=== PATIENT | female | born 1935 | race Hispanic/Latino ===

== ENCOUNTER 2017-12-29 10:52 | Inpatient (IN) | payer MEDICARE ==
[~2017-12-29] VITALS: Ht 152.4 cm; Wt 46.9 kg
[~2017-12-29 10:52] MED LIST: ACET-2247 PO; ACET325T51 PO; ASCO500T9 PO; BALS60OI TP; CINA30 PO; CLOP75TA14 PO; CYCL30DR OU; DOCU-116 PO; FOLI0.8T2 PO; FOLI1TAB15 PO; HONE15GE TP; INSU500V SQ; IPRA3AMP24 IH; LATA2.5D2 OU; METO50TA9 PO; NITR0.4T SL; ONDA4TAB4 PO; PANT40TA25 PO; SEVE800T7 PO
[2017-12-29 12:03] LABS: BASOPHILS % (AUTO) 0.3 % (0.0-5.0); EOSINOPHILS % (AUTO) 0.3 % (0.0-8.0); HEMATOCRIT 33.6 % (36-48); LYMPHOCYTES % (AUTO) 13.3 % (21.0-51.0); MEAN CORPUSCULAR HEMOGLOBIN 32.2 pg (27.0-33.0); MEAN CORPUSCULAR HGB CONC 32.5 g/dL (32.0-36.0); MEAN CORPUSCULAR VOLUME 99.1 fL (79-99); NEUTROPHILS % (AUTO) 73.1 % (40.0-77.0); PLATELET COUNT (AUTO) 373 K/uL (130-400); RED CELL DISTRIBUTION WIDTH 14.5 % (11.0-15.5); WHITE BLOOD COUNT (AUTO) 11.2 K/uL (4.8-10.8)
[2017-12-29 12:07] LABS: CREATININE 5.2 mg/dL (0.5-1.5); POTASSIUM 3.6 mmol/L (3.5-5.1)
[2017-12-29 12:13] LABS: ALBUMIN 2.3 g/dL (3.5-5.0); BILIRUBIN,TOTAL 0.3 mg/dL (0.2-1.0); TOTAL PROTEIN, SERUM 6.7 g/dL (6.0-8.3)
[2017-12-29 13:15] LABS: INR 1.04 (0.85-1.15); PARTIAL THROMBOPLASTIN TIME 34.9 SEC (26.3-35.5); PROTHROMBIN TIME 10.9 SEC (9.6-11.6)
[2017-12-29] MEDS ORDERED: LEVOFLOXACIN 750 MG/D5W 150 ML 150 ML ONE (15:41)
[2017-12-29] MEDS ORDERED: VANCOMYCIN PROTOCOL PER PHARMACY IV SCH (18:15)
[2017-12-29] MEDS ORDERED: VANCOMYCIN 1GM+NS 250ML 250 ML IV ONE (19:00)
[2017-12-29] MEDS ORDERED: IPRATROPIUM/ALBUTEROL SULFATE 3 ML SOLUTION IH ONE (19:41)
[2017-12-29] MEDS ORDERED: ONDANSETRON HCL MDV 20ML 2 MG/ML VIAL IVP PRN (20:30)
[2017-12-29] MEDS ORDERED: ENOXAPARIN SODIUM 30 MG/0.3 ML SQ ONE (20:33)
[2017-12-29 21:15] VITALS: BP 114/43
[2017-12-29] MEDS ORDERED: FAMO20TA8 PO (22:37)
[2017-12-29] MEDS ORDERED: CHOL100046 PO (22:37)
[2017-12-29] MEDS ORDERED: ROSU10TA PO (22:37)
[2017-12-29] MEDS ORDERED: GEL3000G MC (22:37)
[2017-12-29] MEDS ORDERED: SERT25TA PO (22:37)
[2017-12-29] MEDS ORDERED: FOLI1TAB61 PO (22:37)
[2017-12-29] MEDS ORDERED: AMIO200T5 PO (22:37)
[2017-12-29] MEDS ORDERED: APIX2.5T PO (22:37)
[2017-12-29] MEDS ORDERED: TRAM50TA4 PO (22:37)
[2017-12-29] MEDS ORDERED: INSU100V12 SQ (22:37)
[2017-12-29] MEDS ORDERED: CIPR2.5D9 OU (22:37)
[2017-12-29] MEDS ORDERED: AZIT500T PO (22:37)
[2017-12-29] MEDS ORDERED: GUAIF10 PO (22:37)
[2017-12-29 23:00] VITALS: BP 109/44
[2017-12-29] MEDS: IPRATROPIUM/ALBUTEROL SULFATE 3 ML SOLUTION IH ONE ×2 (23:04→23:37)
[2017-12-30] VITALS (14 sets, daily range): BP systolic 92–138; BP diastolic 37–73
[2017-12-30] MEDS: IPRATROPIUM/ALBUTEROL SULFATE 3 ML SOLUTION IH SCH ×5 (00:56→23:13)
[2017-12-30] MEDS ORDERED: GUAIFENESIN-DM 200/20 MG 10 ML PO PRN (01:15)
[2017-12-30 04:47] LABS: HEMATOCRIT 30.3 % (36-48); MEAN CORPUSCULAR HEMOGLOBIN 32.8 pg (27.0-33.0); MEAN CORPUSCULAR HGB CONC 33.7 g/dL (32.0-36.0); MEAN CORPUSCULAR VOLUME 97.2 fL (79-99); PLATELET COUNT (AUTO) 347 K/uL (130-400); RED BLOOD CELL COUNT(AUTO) 3.11 MIL/uL (4.00-5.50); RED CELL DISTRIBUTION WIDTH 14.8 % (11.0-15.5); WHITE BLOOD COUNT (AUTO) 9.7 K/uL (4.8-10.8)
[2017-12-30 05:03] LABS: ALBUMIN 2.1 g/dL (3.5-5.0); BILIRUBIN,TOTAL 0.3 mg/dL (0.2-1.0); CREATININE 5.7 mg/dL (0.5-1.5); PHOSPHORUS 4.7 mg/dL (2.5-4.9); POTASSIUM 3.6 mmol/L (3.5-5.1); TOTAL PROTEIN, SERUM 5.9 g/dL (6.0-8.3)
[2017-12-30] MEDS ORDERED: HEPARIN SODIUM 5000UNIT/ML 1ML VIAL IJ PRN (06:30)
[2017-12-30] MEDS ORDERED: 0.9% SODIUM CHLORIDE 250 ML IV BAG IV PRN (06:30)
[2017-12-30] MEDS ORDERED: ALBUMIN (HUMAN) 25% 100 ML IV PRN (06:30)
[2017-12-30] MEDS ORDERED: SODIUM CHLORIDE 0.9% 1000ML 1,000 ML IV PRN (06:30)
[2017-12-30] MEDS: PANTOPRAZOLE SODIUM 40 MG TABLET.DR PO SCH (10:45)
[2017-12-30] MEDS: ENOXAPARIN SODIUM 30 MG/0.3 ML SQ SCH (10:46)
[2017-12-30] MEDS ORDERED: VANCOMYCIN PROTOCOL PER PHARMACY IV SCH (12:00)
[2017-12-30] MEDS ORDERED: GENTAMICIN 80 MG/NS 100 ML PB 100 ML IV SCH (12:00)
[2017-12-30] MEDS ORDERED: LIDOCAINE HCL 1% MDV 50ML VIAL ONE (13:04)
[2017-12-30] MEDS ORDERED: IPRATROPIUM/ALBUTEROL SULFATE 3 ML SOLUTION IH SCH (18:00)
[2017-12-30] MEDS: VANCOMYCIN 500MG+NS 100ML 100 ML IV SCH (18:36)
[2017-12-31 03:05] VITALS: BP 107/39
[2017-12-31 04:38] LABS: HEMATOCRIT 29.6 % (36-48); MEAN CORPUSCULAR HGB CONC 34.6 g/dL (32.0-36.0); MEAN CORPUSCULAR VOLUME 98.3 fL (79-99); NUCLEATED RED BLOOD CELLS 0.1 % (0.0-0.19); PLATELET COUNT (AUTO) 347 K/uL (130-400); RED BLOOD CELL COUNT(AUTO) 3.01 MIL/uL (4.00-5.50); RED CELL DISTRIBUTION WIDTH 14.4 % (11.0-15.5); WHITE BLOOD COUNT (AUTO) 8.6 K/uL (4.8-10.8)
[2017-12-31 05:13] LABS: CREATININE 4.5 mg/dL (0.5-1.5); POTASSIUM 3.2 mmol/L (3.5-5.1)
[2017-12-31] MEDS: IPRATROPIUM/ALBUTEROL SULFATE 3 ML SOLUTION IH SCH ×4 (07:12→23:16)
[2017-12-31 08:00] VITALS: BP 113/42
[2017-12-31] MEDS: PANTOPRAZOLE SODIUM 40 MG TABLET.DR PO SCH (09:33)
[2017-12-31] MEDS: ENOXAPARIN SODIUM 30 MG/0.3 ML SQ SCH (09:33)
[2017-12-31 11:00] VITALS: BP 121/45
[2017-12-31] MEDS: LEVOFLOXACIN 500 MG/D5W 100 ML 100 ML IV SCH (15:12)
[2017-12-31 16:00] VITALS: BP 106/48
[2017-12-31 19:00] VITALS: BP 114/57
[2017-12-31 23:00] VITALS: BP 111/40
[2018-01-01] VITALS (14 sets, daily range): BP systolic 76–175; BP diastolic 37–75
[2018-01-01 04:48] LABS: HEMATOCRIT 28.3 % (36-48); MEAN CORPUSCULAR HEMOGLOBIN 33.1 pg (27.0-33.0); MEAN CORPUSCULAR HGB CONC 34.2 g/dL (32.0-36.0); MEAN CORPUSCULAR VOLUME 96.7 fL (79-99); PLATELET COUNT (AUTO) 365 K/uL (130-400); RED BLOOD CELL COUNT(AUTO) 2.92 MIL/uL (4.00-5.50); RED CELL DISTRIBUTION WIDTH 14.7 % (11.0-15.5); WHITE BLOOD COUNT (AUTO) 10.2 K/uL (4.8-10.8)
[2018-01-01 05:02] LABS: INR 1.02 (0.85-1.15); PARTIAL THROMBOPLASTIN TIME 31.3 SEC (26.3-35.5); PROTHROMBIN TIME 10.7 SEC (9.6-11.6)
[2018-01-01 05:12] LABS: CREATININE 5.8 mg/dL (0.5-1.5); POTASSIUM 3.3 mmol/L (3.5-5.1)
[2018-01-01] MEDS: IPRATROPIUM/ALBUTEROL SULFATE 3 ML SOLUTION IH SCH ×3 (06:11→18:44)
[2018-01-01] MEDS ORDERED: LIDOCAINE HCL 1% MDV 50ML VIAL ONE (11:11)
[2018-01-01] MEDS ORDERED: VANCOMYCIN 1GM+NS 250ML 250 ML IV SCH (14:30)
[2018-01-01] MEDS: VANCOMYCIN 500MG+NS 100ML 100 ML IV SCH (17:14)
[2018-01-01] MEDS: PANTOPRAZOLE SODIUM 40 MG TABLET.DR PO SCH (17:17)
[2018-01-01] MEDS: ACETAMINOPHEN 325 MG TAB PO PRN (22:09)
[2018-01-02] MEDS: IPRATROPIUM/ALBUTEROL SULFATE 3 ML SOLUTION IH SCH ×4 (00:29→19:10)
[2018-01-02 03:05] VITALS: BP 110/43
[2018-01-02 05:38] LABS: HEMATOCRIT 25.8 % (36-48); MEAN CORPUSCULAR HEMOGLOBIN 33.7 pg (27.0-33.0); MEAN CORPUSCULAR HGB CONC 34.7 g/dL (32.0-36.0); MEAN CORPUSCULAR VOLUME 97.1 fL (79-99); PLATELET COUNT (AUTO) 341 K/uL (130-400); RED BLOOD CELL COUNT(AUTO) 2.65 MIL/uL (4.00-5.50); RED CELL DISTRIBUTION WIDTH 14.3 % (11.0-15.5); WHITE BLOOD COUNT (AUTO) 8.8 K/uL (4.8-10.8)
[2018-01-02 05:44] LABS: CREATININE 3.9 mg/dL (0.5-1.5)
[2018-01-02 08:00] VITALS: BP 127/51
[2018-01-02] MEDS: CIPROFLOXACIN HCL 0.3% OP SCH ×2 (11:55→21:27)
[2018-01-02 12:00] VITALS: BP 105/39
[2018-01-02 16:00] VITALS: BP 130/58
[2018-01-02] MEDS: LEVOFLOXACIN 500 MG/D5W 100 ML 100 ML IV SCH (16:49)
[2018-01-02] MEDS: PANTOPRAZOLE SODIUM 40 MG TABLET.DR PO SCH (16:49)
[2018-01-02 19:56] VITALS: BP 103/34
[2018-01-02] MEDS: EPOETIN ALFA 10,000 UNIT/ML VIAL SQ SCH (21:26)
[2018-01-02 23:56] VITALS: BP 108/46
[2018-01-03] MEDS: IPRATROPIUM/ALBUTEROL SULFATE 3 ML SOLUTION IH SCH ×4 (01:09→19:22)
[2018-01-03 04:28] VITALS: BP 99/38
[2018-01-03 07:13] LABS: HEMATOCRIT 27.2 % (36-48); MEAN CORPUSCULAR HEMOGLOBIN 32.4 pg (27.0-33.0); MEAN CORPUSCULAR HGB CONC 33.3 g/dL (32.0-36.0); MEAN CORPUSCULAR VOLUME 97.1 fL (79-99); PLATELET COUNT (AUTO) 314 K/uL (130-400); RED BLOOD CELL COUNT(AUTO) 2.81 MIL/uL (4.00-5.50); RED CELL DISTRIBUTION WIDTH 14.6 % (11.0-15.5)
[2018-01-03 07:24] LABS: CREATININE 2.5 mg/dL (0.5-1.5); POTASSIUM 3.1 mmol/L (3.5-5.1)
[2018-01-03 07:30] VITALS: BP 100/37
[2018-01-03 07:32] LABS: INR 1.02 (0.85-1.15); PARTIAL THROMBOPLASTIN TIME 27.5 SEC (26.3-35.5); PROTHROMBIN TIME 10.7 SEC (9.6-11.6)
[2018-01-03] MEDS: CIPROFLOXACIN HCL 0.3% OP SCH ×2 (10:41→21:27)
[2018-01-03] MEDS: PANTOPRAZOLE SODIUM 40 MG TABLET.DR PO SCH (10:42)
[2018-01-03 12:00] VITALS: BP 137/51
[2018-01-03] MEDS ORDERED: PHARMACY COMMUNICATION MISC SCH (12:15)
[2018-01-03] MEDS ORDERED: POTASSIUM CHLORIDE 20 MEQ ERTAB PO SCH (12:15)
[2018-01-03 16:00] VITALS: BP 113/61
[2018-01-03] MEDS: VANCOMYCIN 500MG+NS 100ML 100 ML IV SCH (18:01)
[2018-01-03 20:07] VITALS: BP 114/47
[2018-01-04] MEDS: IPRATROPIUM/ALBUTEROL SULFATE 3 ML SOLUTION IH SCH ×5 (00:31→23:58)
[2018-01-04 00:32] VITALS: BP 117/52
[2018-01-04] MEDS: CIPROFLOXACIN HCL 0.3% OP SCH ×5 (01:43→20:43)
[2018-01-04 04:09] VITALS: BP 131/55
[2018-01-04 05:43] LABS: HEMATOCRIT 25.4 % (36-48); MEAN CORPUSCULAR HEMOGLOBIN 33.1 pg (27.0-33.0); MEAN CORPUSCULAR HGB CONC 34.3 g/dL (32.0-36.0); MEAN CORPUSCULAR VOLUME 96.7 fL (79-99); PLATELET COUNT (AUTO) 306 K/uL (130-400); RED BLOOD CELL COUNT(AUTO) 2.63 MIL/uL (4.00-5.50); RED CELL DISTRIBUTION WIDTH 14.4 % (11.0-15.5); WHITE BLOOD COUNT (AUTO) 11.9 K/uL (4.8-10.8)
[2018-01-04 06:04] LABS: PHOSPHORUS 4.4 mg/dL (2.5-4.9); POTASSIUM 3.6 mmol/L (3.5-5.1)
[2018-01-04] MEDS: PANTOPRAZOLE SODIUM 40 MG TABLET.DR PO SCH (09:19)
[2018-01-04 09:26] VITALS: BP 129/40
[2018-01-04 12:39] VITALS: BP 111/49
[2018-01-04] MEDS: LEVOFLOXACIN 500 MG/D5W 100 ML 100 ML IV SCH (15:06)
[2018-01-04 16:00] VITALS: BP 135/46
[2018-01-04] MEDS ORDERED: COMPOUND IV REFRIGERATED 1 EACH IVSOLN MISC PRN (19:45)
[2018-01-04 20:00] VITALS: BP 122/46
[2018-01-05] VITALS: BP 122/44
[2018-01-05] MEDS: CIPROFLOXACIN HCL 0.3% OP SCH ×6 (00:39→20:51)
[2018-01-05 04:00] VITALS: BP 140/50
[2018-01-05 05:38] LABS: MEAN CORPUSCULAR HEMOGLOBIN 32.5 pg (27.0-33.0); MEAN CORPUSCULAR HGB CONC 33.5 g/dL (32.0-36.0); PLATELET COUNT (AUTO) 309 K/uL (130-400); RED BLOOD CELL COUNT(AUTO) 2.68 MIL/uL (4.00-5.50); RED CELL DISTRIBUTION WIDTH 14.6 % (11.0-15.5); WHITE BLOOD COUNT (AUTO) 13.8 K/uL (4.8-10.8)
[2018-01-05 06:04] LABS: ALBUMIN 2.1 g/dL (3.5-5.0); BILIRUBIN,TOTAL 0.3 mg/dL (0.2-1.0); CREATININE 5.7 mg/dL (0.5-1.5); POTASSIUM 4.1 mmol/L (3.5-5.1); TOTAL PROTEIN, SERUM 5.3 g/dL (6.0-8.3)
[2018-01-05] MEDS: IPRATROPIUM/ALBUTEROL SULFATE 3 ML SOLUTION IH SCH ×4 (06:24→23:39)
[2018-01-05 08:00] VITALS: BP 115/40
[2018-01-05] MEDS ORDERED: VANCOMYCIN 0.75 GM in SODIUM CHLORIDE 0.9% 250 ML IV SCH (09:00)
[2018-01-05] MEDS: PANTOPRAZOLE SODIUM 40 MG TABLET.DR PO SCH (11:27)
[2018-01-05] MEDS: ACETAMINOPHEN 325 MG TAB PO PRN (11:30)
[2018-01-05 12:00] VITALS: BP 115/35
[2018-01-05] MEDS ORDERED: VANCOMYCIN 500MG+NS 100ML 100 ML IV NR (12:19)
[2018-01-05] MEDS: EPOETIN ALFA 10,000 UNIT/ML VIAL SQ SCH (13:27)
[2018-01-05] MEDS ORDERED: VANCOMYCIN 0.75 GM in SODIUM CHLORIDE 0.9% 250 ML IV ONE (15:30)
[2018-01-05 17:05] VITALS: BP 127/47
[2018-01-05 19:38] VITALS: BP 124/45
[2018-01-06] VITALS: BP 104/43
[2018-01-06] MEDS: CIPROFLOXACIN HCL 0.3% OP SCH ×2 (00:46→05:33)
[2018-01-06 04:00] VITALS: BP 122/42
[2018-01-06 04:38] LABS: HEMATOCRIT 25.8 % (36-48); MEAN CORPUSCULAR HEMOGLOBIN 32.7 pg (27.0-33.0); MEAN CORPUSCULAR HGB CONC 33.8 g/dL (32.0-36.0); PLATELET COUNT (AUTO) 312 K/uL (130-400); RED BLOOD CELL COUNT(AUTO) 2.66 MIL/uL (4.00-5.50); RED CELL DISTRIBUTION WIDTH 14.6 % (11.0-15.5); WHITE BLOOD COUNT (AUTO) 11.4 K/uL (4.8-10.8)
[2018-01-06 04:55] LABS: CREATININE 3.6 mg/dL (0.5-1.5); POTASSIUM 3.5 mmol/L (3.5-5.1)
[2018-01-06] MEDS: IPRATROPIUM/ALBUTEROL SULFATE 3 ML SOLUTION IH SCH ×2 (06:21→11:22)
[2018-01-06 08:00] VITALS: BP 117/43
[2018-01-06] MEDS: PANTOPRAZOLE SODIUM 40 MG TABLET.DR PO SCH (10:19)
[2018-01-06 12:00] VITALS: BP 130/40
[2018-01-06] MEDS ORDERED: LACTULOSE 20 GM/30 ML UDCUP PO PRN (14:00)
[2018-01-07] MEDS ORDERED: VANCOMYCIN 500MG+NS 100ML 100 ML IV NR (18:00)
== END 2018-01-06 16:40 | DRG 871 ==
LOC: EDH 10:52 → EDHIP 15:57 → OBSVTOIN 15:57 → 3AH 20:35
PROVIDERS: ADMIT Internal Medicine Nephrology; ATTEND Internal Medicine Nephrology
PROC: 5A1D70Z Performance of Urinary Filtration, Intermittent, Less than 6 Hours Per Day (ICD-10-PCS; 2017-12-29)
PROC: 05PY33Z Removal of Infusion Device from Upper Vein, Percutaneous Approach (ICD-10-PCS; 2017-12-30)
PROC: 5A1D70Z Performance of Urinary Filtration, Intermittent, Less than 6 Hours Per Day (ICD-10-PCS; 2017-12-31)
PROC: 02H633Z Insertion of Infusion Device into Right Atrium, Percutaneous Approach (ICD-10-PCS; principal; 2018-01-01)
PROC: B2141ZZ Fluoroscopy of Right Heart using Low Osmolar Contrast (ICD-10-PCS; 2018-01-01)
PROC: 5A1D70Z Performance of Urinary Filtration, Intermittent, Less than 6 Hours Per Day (ICD-10-PCS; 2018-01-02)
PROC: 5A1D70Z Performance of Urinary Filtration, Intermittent, Less than 6 Hours Per Day (ICD-10-PCS; 2018-01-05)
DX: A41.9 Sepsis, unspecified organism (principal); J18.9 Pneumonia, unspecified organism; N18.6 End stage renal disease; I12.0 Hypertensive chronic kidney disease with stage 5 chronic kidney disease or end stage renal disease; E11.21 Type 2 diabetes mellitus with diabetic nephropathy; I48.91 Unspecified atrial fibrillation; E11.51 Type 2 diabetes mellitus with diabetic peripheral angiopathy without gangrene; D64.9 Anemia, unspecified; E11.22 Type 2 diabetes mellitus with diabetic chronic kidney disease; E83.52 Hypercalcemia; Z99.2 Dependence on renal dialysis; E78.5 Hyperlipidemia, unspecified; E66.9 Obesity, unspecified; E87.6 Hypokalemia; G47.30 Sleep apnea, unspecified; I25.10 Atherosclerotic heart disease of native coronary artery without angina pectoris; M19.90 Unspecified osteoarthritis, unspecified site; Z89.512 Acquired absence of left leg below knee; Z88.0 Allergy status to penicillin; Z88.8 Allergy status to other drugs, medicaments and biological substances; Z68.20 Body mass index [BMI] 20.0-20.9, adult; Z71.89 Other specified counseling
CPT/HCPCS: 36415; 36558; 36589; 71045; 76000; 77001; 80048; 80053; 80202; 82948; 84100; 85025; 85027; 85610; 85730; 87040; 87070; 87077; 87186; 90935; 94640; 94664; C1750; J0885; J1580; J1644; J1650; J1956; J3370; J3490; J7030

== ENCOUNTER 2018-01-29 22:39 | Inpatient (IN) | payer MEDICARE ==
[~2018-01-29] VITALS: Ht 121.9 cm; Wt 48.1 kg
[~2018-01-29 22:39] MED LIST changes: +AMIO200T5 PO; +APIX2.5T PO; +AZIT500T PO; +CHOL100046 PO; +CIPR2.5D9 OU; +FAMO20TA8 PO; +FOLI1TAB61 PO; +GEL3000G MC; +GUAIF10 PO; +INSU100V12 SQ; +ROSU10TA PO; +SERT25TA PO; +TRAM50TA4 PO
[2018-01-29 23:22] LABS: BASOPHILS % (AUTO) 0.5 % (0.0-5.0); EOSINOPHILS % (AUTO) 1.7 % (0.0-8.0); HEMATOCRIT 35.8 % (36-48); LYMPHOCYTES % (AUTO) 14.9 % (21.0-51.0); MEAN CORPUSCULAR HEMOGLOBIN 32.4 pg (27.0-33.0); MEAN CORPUSCULAR VOLUME 98.2 fL (79-99); MONOCYTES % (AUTO) 10.2 % (3.0-13.0); NEUTROPHILS % (AUTO) 72.7 % (40.0-77.0); PLATELET COUNT (AUTO) 335 K/uL (130-400); RED BLOOD CELL COUNT(AUTO) 3.65 MIL/uL (4.00-5.50); RED CELL DISTRIBUTION WIDTH 16.4 % (11.0-15.5); WHITE BLOOD COUNT (AUTO) 11.9 K/uL (4.8-10.8)
[2018-01-29 23:34] LABS: INR 1.09 (0.85-1.15); PARTIAL THROMBOPLASTIN TIME 30.2 SEC (26.3-35.5); PROTHROMBIN TIME 11.4 SEC (9.6-11.6)
[2018-01-30 00:16] LABS: CREATININE 4.7 mg/dL (0.5-1.5); POTASSIUM 3.3 mmol/L (3.5-5.1)
[2018-01-30 00:21] LABS: ALBUMIN 2.6 g/dL (3.5-5.0); BILIRUBIN,DIRECT 0.1 mg/dL (0.0-0.3); BILIRUBIN,TOTAL 0.5 mg/dL (0.2-1.0); TOTAL PROTEIN, SERUM 5.8 g/dL (6.0-8.3)
[2018-01-30 01:09] LABS: BASOPHILS % (AUTO) 0.6 % (0.0-5.0); EOSINOPHILS % (AUTO) 1.2 % (0.0-8.0); HEMATOCRIT 35.2 % (36-48); LYMPHOCYTES % (AUTO) 12.3 % (21.0-51.0); MEAN CORPUSCULAR HEMOGLOBIN 32.3 pg (27.0-33.0); MEAN CORPUSCULAR HGB CONC 32.6 g/dL (32.0-36.0); MEAN CORPUSCULAR VOLUME 98.9 fL (79-99); MONOCYTES % (AUTO) 10.5 % (3.0-13.0); NEUTROPHILS % (AUTO) 75.4 % (40.0-77.0); NUCLEATED RED BLOOD CELLS 0.1 % (0.0-0.19); PLATELET COUNT (AUTO) 336 K/uL (130-400); RED BLOOD CELL COUNT(AUTO) 3.56 MIL/uL (4.00-5.50); RED CELL DISTRIBUTION WIDTH 16.2 % (11.0-15.5); WHITE BLOOD COUNT (AUTO) 11.9 K/uL (4.8-10.8)
[2018-01-30 03:59] VITALS: BP 147/55
[2018-01-30 08:00] VITALS: BP 166/68
[2018-01-30] MEDS ORDERED: SODIUM CHLORIDE 0.9% 1000ML 1,000 ML IV PRN (08:15)
[2018-01-30] MEDS ORDERED: 0.9% SODIUM CHLORIDE 250 ML IV BAG IV PRN (08:15)
[2018-01-30] MEDS ORDERED: HEPARIN SODIUM 5000UNIT/ML 1ML VIAL IJ PRN (08:15)
[2018-01-30] MEDS ORDERED: ALBUMIN (HUMAN) 25% 100 ML IV PRN (08:15)
[2018-01-30] MEDS ORDERED: TRAMADOL HCL 50 MG TABLET PO PRN (08:30)
[2018-01-30] MEDS ORDERED: ACETAMINOPHEN 325 MG TAB PO PRN (08:30)
[2018-01-30] MEDS ORDERED: GUAIFENESIN SUGAR-FREE 100 MG/5 ML UDCUP PO PRN (08:30)
[2018-01-30] MEDS ORDERED: NITROGLYCERIN 0.4 MG SL TAB SL PRN (08:30)
[2018-01-30] MEDS ORDERED: IPRATROPIUM/ALBUTEROL SULFATE 3 ML SOLUTION IH PRN (08:30)
[2018-01-30] MEDS: **HM** RESTASIS OPTHL. OU SCH ×2 (09:00→20:40)
[2018-01-30] MEDS: **HM** VIT D3 1000 UNITS PO SCH (09:00)
[2018-01-30] MEDS ORDERED: FAMOTIDINE 20MG TAB 20 MG TAB PO SCH (09:00)
[2018-01-30] MEDS: METOPROLOL TARTRATE 50 MG TAB PO SCH ×2 (09:00→20:42)
[2018-01-30] MEDS: DOCUSATE SODIUM 100 MG CAP PO SCH ×2 (10:03→20:42)
[2018-01-30] MEDS: APIXABAN 2.5 MG TABLET PO SCH ×2 (10:03→20:42)
[2018-01-30] MEDS: FOLIC ACID/VITAMIN B COMP W-C 1 MG CAPSULE PO SCH (10:04)
[2018-01-30] MEDS: PANTOPRAZOLE SODIUM 40 MG TABLET.DR PO SCH (10:04)
[2018-01-30] MEDS: CINACALCET HCL 30 MG TAB PO SCH (10:04)
[2018-01-30] MEDS: AMIODARONE HCL 200 MG TABLET PO SCH (10:04)
[2018-01-30] MEDS: ASCORBIC ACID 500 MG TAB PO SCH ×2 (10:05→20:42)
[2018-01-30 11:00] VITALS: BP 134/46
[2018-01-30] MEDS: SEVELAMER HCL 800 MG TABLET PO SCH ×2 (12:23→16:46)
[2018-01-30 16:00] VITALS: BP 123/57
[2018-01-30 19:15] VITALS: BP 124/44
[2018-01-30] MEDS: HYDROCORTISONE 25 MG SUPPOSITORY PR SCH (20:42)
[2018-01-30] MEDS: SERTRALINE HCL 50 MG TABLET PO SCH (20:42)
[2018-01-30] MEDS: ATORVASTATIN CALCIUM 20 MG TABLET PO SCH (20:42)
[2018-01-30] MEDS: LATANOPROST 2.5 ML DROPS OU SCH (20:42)
[2018-01-30] MEDS: INSULIN GLARGINE 100 UNITS/ML 10 ML VIAL SQ SCH (20:46)
[2018-01-30 23:10] VITALS: BP 141/51
[2018-01-31 00:10] VITALS: BP 152/56
[2018-01-31 03:15] VITALS: BP 146/67
[2018-01-31 05:49] LABS: HEMATOCRIT 33.9 % (36-48); MEAN CORPUSCULAR HEMOGLOBIN 32.9 pg (27.0-33.0); MEAN CORPUSCULAR HGB CONC 33.4 g/dL (32.0-36.0); MEAN CORPUSCULAR VOLUME 98.5 fL (79-99); PLATELET COUNT (AUTO) 294 K/uL (130-400); RED BLOOD CELL COUNT(AUTO) 3.44 MIL/uL (4.00-5.50); RED CELL DISTRIBUTION WIDTH 17.1 % (11.0-15.5); WHITE BLOOD COUNT (AUTO) 10.5 K/uL (4.8-10.8)
[2018-01-31 05:50] LABS: CREATININE 3.1 mg/dL (0.5-1.5); POTASSIUM 4.8 mmol/L (3.5-5.1)
[2018-01-31 05:55] LABS: BAND NEUTROPHILS % (MANUAL) 2 % (0-2); EOSINOPHILS % (MANUAL) 1 % (1-6); LYMPHOCYTES % (MANUAL) 17 % (22-44); MONOCYTES % (MANUAL) 6 % (2-9); SEGMENTED NEUTROPHILS % 74 % (40-70)
[2018-01-31 05:56] LABS: MAN.DIFF COMMENT-IMPRESSION MANUAL DIFFERENTIAL; PLATELET MORPHOLOGY COMMENT ADEQUATE
[2018-01-31] MEDS: **HM** VIT D3 1000 UNITS PO SCH (09:00)
[2018-01-31] MEDS: **HM** RESTASIS OPTHL. OU SCH ×2 (09:00→20:52)
[2018-01-31] MEDS: METOPROLOL TARTRATE 50 MG TAB PO SCH ×2 (09:00→20:49)
[2018-01-31 09:13] VITALS: BP 91/55
[2018-01-31] MEDS: AMIODARONE HCL 200 MG TABLET PO SCH (09:50)
[2018-01-31] MEDS: HYDROCORTISONE 25 MG SUPPOSITORY PR SCH ×2 (09:50→20:49)
[2018-01-31] MEDS: ASCORBIC ACID 500 MG TAB PO SCH ×2 (09:50→20:49)
[2018-01-31] MEDS: SEVELAMER HCL 800 MG TABLET PO SCH ×3 (09:50→17:19)
[2018-01-31] MEDS: DOCUSATE SODIUM 100 MG CAP PO SCH ×2 (09:50→20:49)
[2018-01-31] MEDS: APIXABAN 2.5 MG TABLET PO SCH ×2 (09:50→20:49)
[2018-01-31] MEDS: CINACALCET HCL 30 MG TAB PO SCH (09:50)
[2018-01-31] MEDS: FOLIC ACID/VITAMIN B COMP W-C 1 MG CAPSULE PO SCH (09:50)
[2018-01-31] MEDS: PANTOPRAZOLE SODIUM 40 MG TABLET.DR PO SCH (09:50)
[2018-01-31 12:44] VITALS: BP 115/58
[2018-01-31] MEDS: METRONIDAZOLE 500 MG TABLET PO SCH ×2 (14:29→21:59)
[2018-01-31 16:47] VITALS: BP 112/50
[2018-01-31 19:05] VITALS: BP 118/50
[2018-01-31] MEDS: ATORVASTATIN CALCIUM 20 MG TABLET PO SCH (20:49)
[2018-01-31] MEDS: LATANOPROST 2.5 ML DROPS OU SCH (20:50)
[2018-01-31] MEDS: SERTRALINE HCL 50 MG TABLET PO SCH (20:50)
[2018-01-31] MEDS: INSULIN GLARGINE 100 UNITS/ML 10 ML VIAL SQ SCH (20:53)
[2018-02-01 04:20] VITALS: BP 157/60
[2018-02-01] MEDS: METRONIDAZOLE 500 MG TABLET PO SCH (05:34)
[2018-02-01 07:00] VITALS: BP 144/49
[2018-02-01] MEDS: **HM** VIT D3 1000 UNITS PO SCH (09:00)
[2018-02-01] MEDS: **HM** RESTASIS OPTHL. OU SCH (09:00)
[2018-02-01] MEDS: METOPROLOL TARTRATE 50 MG TAB PO SCH (09:33)
[2018-02-01] MEDS: CINACALCET HCL 30 MG TAB PO SCH (09:33)
[2018-02-01] MEDS: PANTOPRAZOLE SODIUM 40 MG TABLET.DR PO SCH (09:33)
[2018-02-01] MEDS: FOLIC ACID/VITAMIN B COMP W-C 1 MG CAPSULE PO SCH (09:33)
[2018-02-01] MEDS: HYDROCORTISONE 25 MG SUPPOSITORY PR SCH (09:33)
[2018-02-01] MEDS: DOCUSATE SODIUM 100 MG CAP PO SCH (09:33)
[2018-02-01] MEDS: ASCORBIC ACID 500 MG TAB PO SCH (09:33)
[2018-02-01] MEDS: APIXABAN 2.5 MG TABLET PO SCH (09:33)
[2018-02-01] MEDS: AMIODARONE HCL 200 MG TABLET PO SCH (09:33)
[2018-02-01] MEDS ORDERED: METR500T PO (09:48)
[2018-02-01] MEDS: SEVELAMER HCL 800 MG TABLET PO SCH ×2 (10:19→12:38)
[2018-02-01 11:00] VITALS: BP 144/44
== END 2018-02-01 14:46 | DRG 371 ==
LOC: EDH 22:39 → EDHIP 01-30 02:05 → OBSVTOIN 01-30 02:05 → 3AH 01-30 03:01
PROVIDERS: ADMIT Internal Medicine Nephrology; ATTEND Internal Medicine Nephrology
PROC: 5A1D70Z Performance of Urinary Filtration, Intermittent, Less than 6 Hours Per Day (ICD-10-PCS; principal; 2018-01-28)
DX: A04.72 Enterocolitis due to Clostridium difficile, not specified as recurrent (principal); N18.6 End stage renal disease; I12.0 Hypertensive chronic kidney disease with stage 5 chronic kidney disease or end stage renal disease; E11.22 Type 2 diabetes mellitus with diabetic chronic kidney disease; Z82.49 Family history of ischemic heart disease and other diseases of the circulatory system; Z99.2 Dependence on renal dialysis; D64.9 Anemia, unspecified; I25.10 Atherosclerotic heart disease of native coronary artery without angina pectoris; Z89.612 Acquired absence of left leg above knee; Z89.611 Acquired absence of right leg above knee; Z88.0 Allergy status to penicillin; Z88.6 Allergy status to analgesic agent
CPT/HCPCS: 36415; 71045; 80048; 80076; 82270; 82947; 82948; 83690; 84484; 85025; 85610; 85730; 86850; 86900; 86901; 87324; 90935; 93005; 94664; J1644

== ENCOUNTER 2018-03-25 14:19 | Inpatient (IN) | payer MEDICARE ==
[~2018-03-25] VITALS: Ht 149.9 cm; Wt 42.1 kg
[~2018-03-25 14:19] MED LIST changes: -APIX2.5T PO; -AZIT500T PO; -CIPR2.5D9 OU; -CLOP75TA14 PO; -CYCL30DR OU; -GEL3000G MC; -HONE15GE TP; +PANT40TA PO; -PANT40TA25 PO; +VANC125S PO
[2018-03-25 15:11] LABS: BASOPHILS % (AUTO) 0.3 % (0.0-5.0); EOSINOPHILS % (AUTO) 0.7 % (0.0-8.0); HEMATOCRIT 32.4 % (36-48); LYMPHOCYTES % (AUTO) 8.6 % (21.0-51.0); MEAN CORPUSCULAR HEMOGLOBIN 32.7 pg (27.0-33.0); MEAN CORPUSCULAR HGB CONC 32.5 g/dL (32.0-36.0); MEAN CORPUSCULAR VOLUME 100.5 fL (79-99); MONOCYTES % (AUTO) 9.3 % (3.0-13.0); NEUTROPHILS % (AUTO) 81.1 % (40.0-77.0); PLATELET COUNT (AUTO) 352 K/uL (130-400); RED BLOOD CELL COUNT(AUTO) 3.22 MIL/uL (4.00-5.50); RED CELL DISTRIBUTION WIDTH 16.8 % (11.0-15.5); WHITE BLOOD COUNT (AUTO) 12.5 K/uL (4.8-10.8)
[2018-03-25 15:13] LABS: BILIRUBIN,URINE NEGATIVE (NEGATIVE); COLOR,URINE YELLOW (YELLOW); GLUCOSE, URINE (UA) NEGATIVE (NEGATIVE); KETONES,URINE NEGATIVE (NEGATIVE); LEUKOCYTE ESTERASE ,URINE SMALL (NEGATIVE); NITRATE,URINE NEGATIVE (NEGATIVE); OCCULT BLOOD,URINE LARGE (NEGATIVE); PROTEIN,URINE >=300 (NEGATIVE); UROBILINOGEN,URINE 0.2 mg/dL (0.2-1.0)
[2018-03-25 15:16] LABS: APPEARANCE,URINE CLOUDY (CLEAR)
[2018-03-25 15:17] LABS: BACTERIA,URINE Moderate /HPF (None Seen); RBC,URINE None Seen /HPF (0-1); SQUAMOUS EPITHELIAL CELL,UR None Seen /HPF (0-2)
[2018-03-25 15:21] LABS: CREATININE 3.7 mg/dL (0.5-1.5); POTASSIUM 3.5 mmol/L (3.5-5.1)
[2018-03-25 15:23] LABS: INR 1.03 (0.85-1.15); PROTHROMBIN TIME 10.8 SEC (9.6-11.6)
[2018-03-25 15:26] LABS: ALBUMIN 1.9 g/dL (3.5-5.0); BILIRUBIN,TOTAL 0.4 mg/dL (0.2-1.0); TOTAL PROTEIN, SERUM 5.9 g/dL (6.0-8.3)
[2018-03-25 15:39] LABS: TROPONIN I 0.08 ng/mL (0.00-0.06)
[2018-03-25] MEDS ORDERED: SODIUM CHLORIDE 0.9% 50 ML IV ONE ×2 (16:13→21:16)
[2018-03-25] MEDS ORDERED: CEFTRIAXONE SODIUM 1 GM ONE (16:13)
[2018-03-25] MEDS ORDERED: THIAMINE HCL 100 MG/ML 2ML VIAL ONE (21:15)
[2018-03-25 22:30] VITALS: BP 126/39
[2018-03-25] MEDS ORDERED: SODIUM CHLORIDE 0.9% 1000ML 1,000 ML IV ONE (22:32)
[2018-03-25] MEDS ORDERED: 0.9% SODIUM CHLORIDE 250 ML IV BAG IV PRN (23:45)
[2018-03-25] MEDS ORDERED: SODIUM CHLORIDE 0.9% 1000ML 1,000 ML IV PRN (23:45)
[2018-03-26] MEDS ORDERED: HEPARIN SODIUM 5000UNIT/ML 1ML VIAL ONE ×2 (00:16→00:18)
[2018-03-26] MEDS ORDERED: ACETAMINOPHEN 325 MG TAB PO PRN ×4 (01:15→18:30)
[2018-03-26] MEDS ORDERED: ONDANSETRON HCL MDV 20ML 2 MG/ML VIAL IVP PRN (01:15)
[2018-03-26 03:00] VITALS: BP 105/45
[2018-03-26 03:49] LABS: HEMATOCRIT 28.6 % (36-48); MEAN CORPUSCULAR HEMOGLOBIN 32.9 pg (27.0-33.0); MEAN CORPUSCULAR HGB CONC 32.8 g/dL (32.0-36.0); MEAN CORPUSCULAR VOLUME 100.2 fL (79-99); PLATELET COUNT (AUTO) 293 K/uL (130-400); RED BLOOD CELL COUNT(AUTO) 2.85 MIL/uL (4.00-5.50); RED CELL DISTRIBUTION WIDTH 17.3 % (11.0-15.5); WHITE BLOOD COUNT (AUTO) 14.5 K/uL (4.8-10.8)
[2018-03-26 03:59] LABS: ALBUMIN 1.6 g/dL (3.5-5.0); BILIRUBIN,DIRECT 0.2 mg/dL (0.0-0.3); BILIRUBIN,TOTAL 0.3 mg/dL (0.2-1.0); CREATININE 1.6 mg/dL (0.5-1.5); PHOSPHORUS 2.1 mg/dL (2.5-4.9); POTASSIUM 3.1 mmol/L (3.5-5.1); TOTAL PROTEIN, SERUM 5.1 g/dL (6.0-8.3)
[2018-03-26] MEDS: INSULIN HUMULIN R 100 UNIT/ML 3ML SQ SCH ×4 (05:57→20:40)
[2018-03-26 08:07] VITALS: BP 96/40
[2018-03-26] MEDS ORDERED: FAMOTIDINE/PF 20 MG/2 ML VIAL IV SCH (09:00)
[2018-03-26] MEDS: CEFTRIAXONE SODIUM 1 GM IVP SCH (09:49)
[2018-03-26] MEDS: THIAMINE HCL 100 MG/ML 2ML VIAL IVP SCH (09:49)
[2018-03-26 11:51] VITALS: BP 104/40
[2018-03-26 16:00] VITALS: BP 103/46
[2018-03-26] MEDS ORDERED: ONDANSETRON 4 MG TABLET PO PRN (18:30)
[2018-03-26] MEDS ORDERED: IPRATROPIUM/ALBUTEROL SULFATE 3 ML SOLUTION IH PRN (18:30)
[2018-03-26] MEDS ORDERED: NITROGLYCERIN 0.4 MG SL TAB SL PRN (18:30)
[2018-03-26] MEDS ORDERED: GUAIFENESIN SUGAR-FREE 100 MG/5 ML UDCUP PO PRN (18:30)
[2018-03-26] MEDS ORDERED: AMIODARONE HCL 200 MG TABLET PO ONE (18:45)
[2018-03-26] MEDS ORDERED: AMIODARONE HCL 200 MG TABLET PO SCH (18:45)
[2018-03-26 19:37] VITALS: BP 100/50
[2018-03-26] MEDS: LATANOPROST 2.5 ML DROPS OU SCH (21:14)
[2018-03-26] MEDS: ASCORBIC ACID 500 MG TAB PO SCH (21:15)
[2018-03-26] MEDS: ATORVASTATIN CALCIUM 20 MG TABLET PO SCH (21:15)
[2018-03-26] MEDS: METOPROLOL TARTRATE 50 MG TAB PO SCH (21:15)
[2018-03-26] MEDS: DOCUSATE SODIUM 100 MG CAP PO SCH (21:16)
[2018-03-26] MEDS: INSULIN GLARGINE 100 UNITS/ML 10 ML VIAL SQ SCH (21:17)
[2018-03-26 23:59] VITALS: BP 105/51
[2018-03-27 04:00] VITALS: BP 133/56
[2018-03-27] MEDS ORDERED: DEXTROSE 50%-WATER 50 ML DISP.SYRIN IV ONE (05:43)
[2018-03-27] MEDS: INSULIN HUMULIN R 100 UNIT/ML 3ML SQ SCH ×4 (06:12→20:43)
[2018-03-27] MEDS: PANTOPRAZOLE SODIUM 40 MG TABLET.DR PO SCH (06:44)
[2018-03-27 07:00] VITALS: BP 142/61
[2018-03-27] MEDS: SEVELAMER HCL 800 MG TABLET PO SCH ×3 (08:00→17:00)
[2018-03-27] MEDS: FOLIC ACID/VITAMIN B COMP W-C 1 MG CAPSULE PO SCH (09:00)
[2018-03-27] MEDS: AMIODARONE HCL 200 MG TABLET PO SCH (09:00)
[2018-03-27] MEDS: THIAMINE HCL 100 MG/ML 2ML VIAL IVP SCH (09:00)
[2018-03-27] MEDS: METOPROLOL TARTRATE 50 MG TAB PO SCH ×2 (09:00→21:28)
[2018-03-27] MEDS: **HM**Cholecalciferol (Vitamin D3) (Vitamin D) 1,000 UNIT PO SCH (09:00)
[2018-03-27] MEDS: FAMOTIDINE 20MG TAB 20 MG TAB PO SCH (09:00)
[2018-03-27] MEDS: CEFTRIAXONE SODIUM 1 GM IVP SCH (09:00)
[2018-03-27] MEDS: DOCUSATE SODIUM 100 MG CAP PO SCH ×2 (09:00→21:28)
[2018-03-27] MEDS: ASCORBIC ACID 500 MG TAB PO SCH ×2 (09:00→21:28)
[2018-03-27] MEDS: CINACALCET HCL 30 MG TAB PO SCH (09:00)
[2018-03-27] MEDS: FOLIC ACID 1 MG TABLET PO SCH (09:00)
[2018-03-27 11:00] VITALS: BP 153/56
[2018-03-27 16:00] VITALS: BP 160/66
[2018-03-27] MEDS ORDERED: HEPARIN SODIUM 5000UNIT/ML 1ML VIAL ONE (19:25)
[2018-03-27] MEDS ORDERED: 0.9% SODIUM CHLORIDE 250 ML IV BAG IV PRN (19:45)
[2018-03-27] MEDS ORDERED: HEPARIN SODIUM 5000UNIT/ML 1ML VIAL IJ PRN (19:45)
[2018-03-27] MEDS ORDERED: ALBUMIN (HUMAN) 25% 100 ML IV PRN (19:45)
[2018-03-27] MEDS ORDERED: SODIUM CHLORIDE 0.9% 1000ML 1,000 ML IV PRN (19:45)
[2018-03-27 19:46] VITALS: BP 136/49
[2018-03-27] MEDS: INSULIN GLARGINE 100 UNITS/ML 10 ML VIAL SQ SCH (20:44)
[2018-03-27] MEDS: LATANOPROST 2.5 ML DROPS OU SCH (21:22)
[2018-03-27] MEDS: ATORVASTATIN CALCIUM 20 MG TABLET PO SCH (21:28)
[2018-03-27 23:52] VITALS: BP 126/102
[2018-03-28 04:06] VITALS: BP 152/105
[2018-03-28] MEDS: INSULIN HUMULIN R 100 UNIT/ML 3ML SQ SCH ×4 (05:46→21:00)
[2018-03-28] MEDS: PANTOPRAZOLE SODIUM 40 MG TABLET.DR PO SCH (06:06)
[2018-03-28 07:00] VITALS: BP 153/69
[2018-03-28] MEDS: CINACALCET HCL 30 MG TAB PO SCH (08:02)
[2018-03-28] MEDS: METOPROLOL TARTRATE 50 MG TAB PO SCH ×3 (08:02→21:28)
[2018-03-28] MEDS: DOCUSATE SODIUM 100 MG CAP PO SCH ×3 (08:02→21:28)
[2018-03-28] MEDS: CEFTRIAXONE SODIUM 1 GM IVP SCH (08:02)
[2018-03-28] MEDS: ASCORBIC ACID 500 MG TAB PO SCH ×3 (08:03→21:28)
[2018-03-28] MEDS: FOLIC ACID 1 MG TABLET PO SCH (08:03)
[2018-03-28] MEDS: AMIODARONE HCL 200 MG TABLET PO SCH (08:03)
[2018-03-28] MEDS: FOLIC ACID/VITAMIN B COMP W-C 1 MG CAPSULE PO SCH (08:03)
[2018-03-28] MEDS: FAMOTIDINE 20MG TAB 20 MG TAB PO SCH (08:03)
[2018-03-28] MEDS: THIAMINE HCL 100 MG/ML 2ML VIAL IVP SCH (08:03)
[2018-03-28] MEDS: SEVELAMER HCL 800 MG TABLET PO SCH ×3 (08:04→17:00)
[2018-03-28] MEDS: **HM**Cholecalciferol (Vitamin D3) (Vitamin D) 1,000 UNIT PO SCH (09:00)
[2018-03-28 11:00] VITALS: BP 104/56
[2018-03-28 16:00] VITALS: BP 102/65
[2018-03-28 19:26] VITALS: BP 138/70
[2018-03-28] MEDS: INSULIN GLARGINE 100 UNITS/ML 10 ML VIAL SQ SCH (21:00)
[2018-03-28] MEDS: ATORVASTATIN CALCIUM 20 MG TABLET PO SCH ×2 (21:00→21:29)
[2018-03-28] MEDS: LATANOPROST 2.5 ML DROPS OU SCH (21:27)
[2018-03-28 23:56] VITALS: BP 167/64
[2018-03-29 04:14] VITALS: BP 156/64
[2018-03-29 04:43] LABS: HEMATOCRIT 29.1 % (36-48); MEAN CORPUSCULAR HGB CONC 33.2 g/dL (32.0-36.0); MEAN CORPUSCULAR VOLUME 99.4 fL (79-99); PLATELET COUNT (AUTO) 320 K/uL (130-400); RED BLOOD CELL COUNT(AUTO) 2.93 MIL/uL (4.00-5.50); RED CELL DISTRIBUTION WIDTH 16.6 % (11.0-15.5); WHITE BLOOD COUNT (AUTO) 10.2 K/uL (4.8-10.8)
[2018-03-29 05:01] LABS: BAND NEUTROPHILS % (MANUAL) 3 % (0-2); BASOPHILS % (MANUAL) 1 % (0-2); CREATININE 3.1 mg/dL (0.5-1.5); EOSINOPHILS % (MANUAL) 2 % (1-6); LYMPHOCYTES % (MANUAL) 12 % (22-44); MAN.DIFF COMMENT-IMPRESSION MANUAL DIFFERENTIAL; MONOCYTES % (MANUAL) 6 % (2-9); PHOSPHORUS 2.6 mg/dL (2.5-4.9); PLATELET MORPHOLOGY COMMENT ADEQUATE; POTASSIUM 3.3 mmol/L (3.5-5.1); SEGMENTED NEUTROPHILS % 76 % (40-70)
[2018-03-29] MEDS: INSULIN HUMULIN R 100 UNIT/ML 3ML SQ SCH ×4 (05:37→20:43)
[2018-03-29] MEDS: PANTOPRAZOLE SODIUM 40 MG TABLET.DR PO SCH (05:38)
[2018-03-29 07:57] VITALS: BP 166/64
[2018-03-29] MEDS: CEFTRIAXONE SODIUM 1 GM IVP SCH (08:11)
[2018-03-29] MEDS: THIAMINE HCL 100 MG/ML 2ML VIAL IVP SCH (08:11)
[2018-03-29] MEDS: CINACALCET HCL 30 MG TAB PO SCH (08:11)
[2018-03-29] MEDS: FAMOTIDINE 20MG TAB 20 MG TAB PO SCH (08:12)
[2018-03-29] MEDS: FOLIC ACID 1 MG TABLET PO SCH (08:12)
[2018-03-29] MEDS: AMIODARONE HCL 200 MG TABLET PO SCH (08:12)
[2018-03-29] MEDS: SEVELAMER HCL 800 MG TABLET PO SCH ×3 (08:12→17:03)
[2018-03-29] MEDS: METOPROLOL TARTRATE 50 MG TAB PO SCH ×2 (08:12→20:43)
[2018-03-29] MEDS: DOCUSATE SODIUM 100 MG CAP PO SCH ×2 (08:12→20:43)
[2018-03-29] MEDS: ASCORBIC ACID 500 MG TAB PO SCH ×2 (08:12→20:43)
[2018-03-29] MEDS: FOLIC ACID/VITAMIN B COMP W-C 1 MG CAPSULE PO SCH (08:12)
[2018-03-29] MEDS: **HM**Cholecalciferol (Vitamin D3) (Vitamin D) 1,000 UNIT PO SCH (08:21)
[2018-03-29] MEDS: MEROPENEM 1 GM VIAL IVP SCH (10:11)
[2018-03-29 12:01] VITALS: BP 165/65
[2018-03-29 16:00] VITALS: BP 155/57
[2018-03-29 19:26] VITALS: BP 96/67
[2018-03-29] MEDS: ATORVASTATIN CALCIUM 20 MG TABLET PO SCH (20:43)
[2018-03-29] MEDS: LATANOPROST 2.5 ML DROPS OU SCH (20:43)
[2018-03-29] MEDS: INSULIN GLARGINE 100 UNITS/ML 10 ML VIAL SQ SCH (21:11)
[2018-03-29 22:58] VITALS: BP 146/59
[2018-03-30 03:24] VITALS: BP 163/50
[2018-03-30 04:28] LABS: HEMATOCRIT 30.4 % (36-48); MEAN CORPUSCULAR HEMOGLOBIN 33.4 pg (27.0-33.0); MEAN CORPUSCULAR VOLUME 101.1 fL (79-99); NUCLEATED RED BLOOD CELLS 0.1 % (0.0-0.19); PLATELET COUNT (AUTO) 338 K/uL (130-400); RED BLOOD CELL COUNT(AUTO) 3.01 MIL/uL (4.00-5.50); RED CELL DISTRIBUTION WIDTH 17.2 % (11.0-15.5); WHITE BLOOD COUNT (AUTO) 17.1 K/uL (4.8-10.8)
[2018-03-30 04:32] LABS: CREATININE 4.1 mg/dL (0.5-1.5); POTASSIUM 3.2 mmol/L (3.5-5.1)
[2018-03-30] MEDS: INSULIN HUMULIN R 100 UNIT/ML 3ML SQ SCH ×4 (05:50→20:42)
[2018-03-30] MEDS: PANTOPRAZOLE SODIUM 40 MG TABLET.DR PO SCH (06:20)
[2018-03-30] MEDS: SEVELAMER HCL 800 MG TABLET PO SCH ×3 (08:00→16:32)
[2018-03-30 08:07] VITALS: BP 171/49
[2018-03-30] MEDS: THIAMINE HCL 100 MG/ML 2ML VIAL IVP SCH (09:00)
[2018-03-30] MEDS: DOCUSATE SODIUM 100 MG CAP PO SCH ×2 (09:00→20:10)
[2018-03-30] MEDS: **HM**Cholecalciferol (Vitamin D3) (Vitamin D) 1,000 UNIT PO SCH (09:00)
[2018-03-30] MEDS: FOLIC ACID 1 MG TABLET PO SCH ×2 (09:00→11:12)
[2018-03-30] MEDS: METOPROLOL TARTRATE 50 MG TAB PO SCH ×2 (11:12→20:10)
[2018-03-30] MEDS: ASCORBIC ACID 500 MG TAB PO SCH ×2 (11:12→20:10)
[2018-03-30] MEDS: FAMOTIDINE 20MG TAB 20 MG TAB PO SCH (11:12)
[2018-03-30] MEDS: AMIODARONE HCL 200 MG TABLET PO SCH (11:12)
[2018-03-30] MEDS: MEROPENEM 1 GM VIAL IVP SCH (11:12)
[2018-03-30] MEDS: FOLIC ACID/VITAMIN B COMP W-C 1 MG CAPSULE PO SCH (11:13)
[2018-03-30] MEDS: CINACALCET HCL 30 MG TAB PO SCH (11:13)
[2018-03-30 12:00] VITALS: BP 127/50
[2018-03-30] MEDS: METRONIDAZOLE 500 MG TABLET PO SCH ×2 (13:14→20:10)
[2018-03-30 16:00] VITALS: BP 141/62
[2018-03-30 19:20] VITALS: BP 144/61
[2018-03-30] MEDS: ATORVASTATIN CALCIUM 20 MG TABLET PO SCH (20:10)
[2018-03-30] MEDS: LATANOPROST 2.5 ML DROPS OU SCH (20:11)
[2018-03-30] MEDS: INSULIN GLARGINE 100 UNITS/ML 10 ML VIAL SQ SCH (20:42)
[2018-03-30 23:24] VITALS: BP 175/76
[2018-03-31 03:23] VITALS: BP 136/57
[2018-03-31 04:24] LABS: HEMATOCRIT 30.9 % (36-48); MEAN CORPUSCULAR HEMOGLOBIN 33.3 pg (27.0-33.0); MEAN CORPUSCULAR HGB CONC 33.6 g/dL (32.0-36.0); MEAN CORPUSCULAR VOLUME 99.1 fL (79-99); PLATELET COUNT (AUTO) 325 K/uL (130-400); RED BLOOD CELL COUNT(AUTO) 3.12 MIL/uL (4.00-5.50); RED CELL DISTRIBUTION WIDTH 17.1 % (11.0-15.5); WHITE BLOOD COUNT (AUTO) 13.6 K/uL (4.8-10.8)
[2018-03-31 04:36] LABS: ALBUMIN 1.9 g/dL (3.5-5.0); BILIRUBIN,DIRECT 0.1 mg/dL (0.0-0.3); BILIRUBIN,TOTAL 0.4 mg/dL (0.2-1.0); CREATININE 2.6 mg/dL (0.5-1.5); POTASSIUM 3.2 mmol/L (3.5-5.1); TOTAL PROTEIN, SERUM 5.4 g/dL (6.0-8.3)
[2018-03-31 04:38] LABS: EOSINOPHILS % (MANUAL) 4 % (1-6); LYMPHOCYTES % (MANUAL) 12 % (22-44); MONOCYTES % (MANUAL) 12 % (2-9); SEGMENTED NEUTROPHILS % 72 % (40-70)
[2018-03-31 04:39] LABS: MAN.DIFF COMMENT-IMPRESSION MANUAL DIFFERENTIAL; PLATELET MORPHOLOGY COMMENT ADEQUATE
[2018-03-31] MEDS: INSULIN HUMULIN R 100 UNIT/ML 3ML SQ SCH ×4 (05:48→21:00)
[2018-03-31] MEDS: PANTOPRAZOLE SODIUM 40 MG TABLET.DR PO SCH (05:48)
[2018-03-31 07:33] VITALS: BP 176/68
[2018-03-31] MEDS: SEVELAMER HCL 800 MG TABLET PO SCH ×3 (08:00→17:15)
[2018-03-31] MEDS: **HM**Cholecalciferol (Vitamin D3) (Vitamin D) 1,000 UNIT PO SCH (09:00)
[2018-03-31] MEDS: FOLIC ACID/VITAMIN B COMP W-C 1 MG CAPSULE PO SCH (09:24)
[2018-03-31] MEDS: METRONIDAZOLE 500 MG TABLET PO SCH ×3 (09:24→21:42)
[2018-03-31] MEDS: MEROPENEM 1 GM VIAL IVP SCH (09:24)
[2018-03-31] MEDS: CINACALCET HCL 30 MG TAB PO SCH (09:24)
[2018-03-31] MEDS: THIAMINE HCL 100 MG/ML 2ML VIAL IVP SCH (09:24)
[2018-03-31] MEDS: DOCUSATE SODIUM 100 MG CAP PO SCH ×2 (09:24→21:42)
[2018-03-31] MEDS: FAMOTIDINE 20MG TAB 20 MG TAB PO SCH (09:25)
[2018-03-31] MEDS: METOPROLOL TARTRATE 50 MG TAB PO SCH ×2 (09:25→21:00)
[2018-03-31] MEDS: AMIODARONE HCL 200 MG TABLET PO SCH (09:25)
[2018-03-31] MEDS: ASCORBIC ACID 500 MG TAB PO SCH ×2 (09:25→21:42)
[2018-03-31 11:25] VITALS: BP 137/56
[2018-03-31 16:46] VITALS: BP 134/50
[2018-03-31 19:53] VITALS: BP 128/43
[2018-03-31] MEDS: INSULIN GLARGINE 100 UNITS/ML 10 ML VIAL SQ SCH (21:00)
[2018-03-31] MEDS: LATANOPROST 2.5 ML DROPS OU SCH (21:42)
[2018-03-31] MEDS: ATORVASTATIN CALCIUM 20 MG TABLET PO SCH (21:42)
[2018-03-31 23:39] VITALS: BP 134/60
[2018-04-01 03:35] LABS: HEMATOCRIT 31.2 % (36-48); MEAN CORPUSCULAR HEMOGLOBIN 31.6 pg (27.0-33.0); MEAN CORPUSCULAR VOLUME 98.6 fL (79-99); NUCLEATED RED BLOOD CELLS 0.1 % (0.0-0.19); PLATELET COUNT (AUTO) 331 K/uL (130-400); RED BLOOD CELL COUNT(AUTO) 3.17 MIL/uL (4.00-5.50); RED CELL DISTRIBUTION WIDTH 17.3 % (11.0-15.5); WHITE BLOOD COUNT (AUTO) 15.2 K/uL (4.8-10.8)
[2018-04-01 03:45] LABS: CREATININE 3.9 mg/dL (0.5-1.5); POTASSIUM 3.5 mmol/L (3.5-5.1)
[2018-04-01 03:46] VITALS: BP 128/56
[2018-04-01] MEDS: INSULIN HUMULIN R 100 UNIT/ML 3ML SQ SCH ×3 (05:53→16:30)
[2018-04-01 07:27] VITALS: BP 158/67
[2018-04-01] MEDS: **HM**Cholecalciferol (Vitamin D3) (Vitamin D) 1,000 UNIT PO SCH (09:00)
[2018-04-01] MEDS: DOCUSATE SODIUM 100 MG CAP PO SCH (09:00)
[2018-04-01] MEDS: METRONIDAZOLE 500 MG TABLET PO SCH ×2 (09:00→14:00)
[2018-04-01 11:27] VITALS: BP 128/43
[2018-04-01] MEDS: SEVELAMER HCL 800 MG TABLET PO SCH ×3 (12:00→17:00)
[2018-04-01] MEDS: CINACALCET HCL 30 MG TAB PO SCH (12:23)
[2018-04-01] MEDS: FOLIC ACID/VITAMIN B COMP W-C 1 MG CAPSULE PO SCH (12:23)
[2018-04-01] MEDS: PANTOPRAZOLE SODIUM 40 MG TABLET.DR PO SCH (12:23)
[2018-04-01] MEDS: MEROPENEM 1 GM VIAL IVP SCH (12:23)
[2018-04-01] MEDS: ASCORBIC ACID 500 MG TAB PO SCH (12:23)
[2018-04-01] MEDS: AMIODARONE HCL 200 MG TABLET PO SCH (12:23)
[2018-04-01] MEDS: FOLIC ACID 1 MG TABLET PO SCH (12:24)
[2018-04-01] MEDS: METOPROLOL TARTRATE 50 MG TAB PO SCH (12:24)
[2018-04-01] MEDS: FAMOTIDINE 20MG TAB 20 MG TAB PO SCH (12:24)
[2018-04-01] MEDS: THIAMINE HCL 100 MG/ML 2ML VIAL IVP SCH (12:24)
[2018-04-01 16:40] VITALS: BP 150/74
== END 2018-04-01 19:00 | DRG 871 ==
LOC: EDH 14:19 → EDHIP 18:30 → 2DH 22:31
PROVIDERS: ADMIT Internal Medicine Nephrology; ATTEND Internal Medicine Nephrology
PROC: 5A1D70Z Performance of Urinary Filtration, Intermittent, Less than 6 Hours Per Day (ICD-10-PCS; principal; 2018-03-25)
PROC: 5A1D70Z Performance of Urinary Filtration, Intermittent, Less than 6 Hours Per Day (ICD-10-PCS; 2018-03-27)
PROC: 5A1D70Z Performance of Urinary Filtration, Intermittent, Less than 6 Hours Per Day (ICD-10-PCS; 2018-03-30)
PROC: 5A1D70Z Performance of Urinary Filtration, Intermittent, Less than 6 Hours Per Day (ICD-10-PCS; 2018-04-01)
DX: A41.9 Sepsis, unspecified organism (principal); N18.6 End stage renal disease; G93.41 Metabolic encephalopathy; I12.0 Hypertensive chronic kidney disease with stage 5 chronic kidney disease or end stage renal disease; N39.0 Urinary tract infection, site not specified; E46 Unspecified protein-calorie malnutrition; Z68.1 Body mass index [BMI] 19.9 or less, adult; Z66 Do not resuscitate; E11.22 Type 2 diabetes mellitus with diabetic chronic kidney disease; M10.9 Gout, unspecified; D64.9 Anemia, unspecified; E11.51 Type 2 diabetes mellitus with diabetic peripheral angiopathy without gangrene; G47.30 Sleep apnea, unspecified; I48.91 Unspecified atrial fibrillation; Z16.12 Extended spectrum beta lactamase (ESBL) resistance; Z99.2 Dependence on renal dialysis; Z89.611 Acquired absence of right leg above knee; Z89.512 Acquired absence of left leg below knee; Z87.440 Personal history of urinary (tract) infections; Z86.19 Personal history of other infectious and parasitic diseases; Z88.5 Allergy status to narcotic agent; Z88.0 Allergy status to penicillin; Z88.8 Allergy status to other drugs, medicaments and biological substances; Z82.49 Family history of ischemic heart disease and other diseases of the circulatory system
CPT/HCPCS: 36415; 70450; 71045; 80048; 80053; 80076; 81001; 82140; 82550; 82553; 82948; 83874; 84100; 84484; 85025; 85027; 85610; 85730; 87040; 87088; 87186; 90935; 93005; 94664; A4218; J0696; J1644; J2185; J3411; J3490; J7030; J7070